=== PATIENT | male | born 1985 | race Caucasian/White ===

== ENCOUNTER 2024-11-29 01:00 | Emergency (ER) | payer SELFPAY ==
[~2024-11-29] VITALS: Ht 172.7 cm; Wt 79.0 kg
[2024-11-29 01:33] VITALS: O2SAT 98
[2024-11-29 01:36] VITALS: TEMP 36.7; O2SAT 99
[2024-11-29 02:00] LABS: CHLORIDE 104 mEq/L (98-107); POTASSIUM 3.8 mEq/L (3.5-5.1); SODIUM 143 mEq/L (136-145)
[2024-11-29 02:01] LABS: BASOPHILS % 0.6 % (0.0-2.0); CALCIUM 9.3 mg/dL (8.7-10.4); CARBON DIOXIDE 28 mEq/L (21-32); HEMATOCRIT. 43.3 % (42.0-52.0); HEMOGLOBIN. 14.6 g/dL (14.0-18.0); MEAN CORPUSCULAR HEMOGLOBIN 27.2 pg (28.0-32.0); MEAN CORPUSCULAR HGB CONC 33.7 g/dL (31.0-37.0); MEAN CORPUSCULAR VOLUME 80.6 fL (80.0-94.0); MEAN PLATELET VOLUME 8.2 fl (7.4-10.4); MONOCYTES % 7.3 % (2.0-8.0); NEUTROPHILS % 69.1 % (40.0-76.0); PLATELET 223 x1000/uL (130-400); RED BLOOD CELL COUNT 5.38 mill/uL (4.7-6.1); RED CELL DISTRIBUTION WIDTH 13.6 % (11.6-14.6); WHITE BLOOD COUNT 6.9 x1000/uL (4.5-11.0)
[2024-11-29 02:06] LABS: CREATININE 1.1 mg/dL (0.6-1.3); GLUCOSE 150 mg/dL (70-105); UREA NITROGEN BLOOD 12 mg/dL (9-23)
[2024-11-29 02:08] LABS: ALANINE AMINOTRANSFERASE 55 IU/L (10-49); ALBUMIN 4.6 g/dL (3.2-4.8); ASPARTATE AMINOTRANSFERASE 19 IU/L (<34); BILIRUBIN TOTAL 0.6 mg/dL (0.1-1.0); PROTEIN TOTAL 7.8 g/dL (6.0-8.3)
[2024-11-29] MEDS: ONDANSETRON 4MG ODT PO ONE (02:49)
[2024-11-29 03:31] LABS: CLARITY URINE CLOUDY (CLEAR); COLOR URINE YELLOW (YELLOW); GLUCOSE URINE NEGATIVE (NEGATIVE); KETONES URINE NEGATIVE (NEGATIVE); LEUKOCYTE ESTERASE URINE NEGATIVE (NEGATIVE); NITRITE URINE NEGATIVE (NEGATIVE); OCCULT BLOOD URINE 3+ (NEGATIVE); PROTEIN URINE TRACE (NEGATIVE); SPECIFIC GRAVITY URINE 1.024 (1.005-1.030)
[2024-11-29] MEDS: HYDROCODONE/ACETAMINOPHEN 10/325MG TABLET PO ONE (04:22)
[2024-11-29 05:52] VITALS: BP 124/88; PULSE 76; RESP 20
[2024-11-29] MEDS: OXYCODONE HCL 10MG TABLET SR 12HR PO ONE (05:52)
[2024-11-29 06:28] LABS: WBC URINE NONE SEEN /hpf (0-2)
[2024-11-29 06:29] LABS: BACTERIA URINE NONE SEEN; RBC URINE TNTC /hpf (0-2); SQUAMOUS EPITHELIAL CELL URINE NONE SEEN /lpf (RARE/1+)
[2024-11-29] MEDS ORDERED: KETO10TA2 MT (06:37)
[2024-11-29] MEDS ORDERED: HYDR-4001 MT (06:56)
== END 2024-11-29 06:45 | disposition home or self-care (01) ==
LOC: ER 01:10
DX: N20.0 Calculus of kidney (principal); M51.369 Other intervertebral disc degeneration, lumbar region without mention of lumbar back pain or lower extremity pain; M51.379 Other intervertebral disc degeneration, lumbosacral region without mention of lumbar back pain or lower extremity pain
CPT/HCPCS: 80053; 81003; 83690; 85025; 36415; 74176; 99284; Q0162; Z7610